=== PATIENT | female | born 1965 | race Caucasian/White ===

== ENCOUNTER 2023-02-18 07:38 | Day surgery (SDC) | payer MEDICAID ==
[~2023-02-18] VITALS: Ht 157.5 cm; Wt 64.8 kg
[2023-02-18 08:00] VITALS: BP 113/59; PULSE 84; RESP 16; TEMP 97.8; O2SAT 98
[2023-02-18] MEDS ORDERED: albumin 25% 100mL bottle x 1 IV PRN (08:00)
[2023-02-18] MEDS ORDERED: LACT10SO7 PO (08:06)
[2023-02-18] MEDS ORDERED: CLIN60LO TOP (08:06)
== END 2023-02-18 09:15 | disposition home or self-care (01) ==
LOC: SSTAY O 07:38
PROVIDERS: ATTEND Radiology Vascular & Interventional Radiology
DX: K70.31 Alcoholic cirrhosis of liver with ascites (principal); Z53.8 Procedure and treatment not carried out for other reasons; F41.1 Generalized anxiety disorder; I10 Essential (primary) hypertension; F32.A Depression, unspecified; M19.90 Unspecified osteoarthritis, unspecified site; F43.10 Post-traumatic stress disorder, unspecified; Z91.013 Allergy to seafood; Z79.899 Other long term (current) drug therapy
CPT/HCPCS: 76705; A6258; A6449

== ENCOUNTER 2025-02-01 22:06 | Inpatient (IN) | payer MEDICAID ==
[~2025-02-01] VITALS: Ht 157.5 cm; Wt 60.0 kg
[~2025-02-01 22:06] MED LIST: CLIN60LO TOP; LACT10SO7 PO
--- NOTE | 2025-02-01 22:17 | Physician Documentation ---
History of Present Illness ~ Stated Complaint: WEAK/DIZZINESS Time Seen by MD: 22:09 HPI Patient presents to the emergency room for evaluation as a transfer from [facility] for acute on chronic kidney failure as well as anemia requiring transfusion. Prior hemoglobin a proximally 1-2 months ago showed hemoglobin of 8 in today was hemoglobin of 7. Patient was sent to the emergency room as outpatient labs showed that patient's hemoglobin was emergently low and that has told to go to the emergency room. Workup at the emergency room showed that she had acute kidney injury as well. CT scan of the abdomen performed that has negative for acute process. Guaiac was negative. She has history of gastric varices and cirrhosis Medication Reconciliation Allergies: Uncoded Allergies: SHELLFISH (Allergy, Unknown, 02/18/23) Scheduled Clindamycin Phosphate (Cleocin T), 1 APPLIC TOP Q12H, (Reported) Lactulose (Lactulose), 30 ML PO DAILY, (Reported) Review of Systems ROS All review of systems negative except as per HPI Physical Exam Physical Exam General: Patient is awake, alert, oriented x4 in no acute distress. Slow to respond Head: Normocephalic and atraumatic. Eyes: Conjunctival normal. EOMI. PERRL. ENT: Mucous membranes moist. Neck: Supple, trachea is midline. Chest: Clear to auscultation bilaterally without rales, rhonchi, or wheezes. There is no accessory muscle use or retractions. Cardiac: RRR without murmurs, gallops, or rubs. Abd: Soft, nondistended, mild diffuse tenderness to palpation Progress Results/Orders Results/Orders Orders - BRANDON BRADLEY MD Urinalysis, Cult If Indicated (02/01/25 22:09) Type And Screen (02/01/25 22:09) Chest,Single View (02/01/25 22:55) Nothing By Mouth (02/02/25 Breakfast) Monitor (02/01/25 22:09) Saline Lock (02/01/25 22:) Electrocardiogram (02/01/25 22:09) Drug Screen, Urine (02/01/25 22:12) Page Hospitalist (02/02/25 02:07) Fill Out Med Reconciliation (02/02/25 02:07) Completed Orders - BRANDON BRADLEY MD Cbc/Diff (02/01/25 22:09) PTT (02/01/25 22:09) Pt Inr (02/01/25 22:09) Chest,Single View (02/01/25 22:55) Electrocardiogram (02/01/25 22:09) Pantoprazole 40mg Iv (Protonix 40mg Iv) (02/01/25 22:10) CMP (02/01/25 22:11) Ammonia (02/01/25 22:11) Procalcitonin (02/01/25 22:18) Ceftriaxone/[id number] 1gm (Rocephin 1 (02/01/25 23:50) Normal Saline 1000ml (0.9% Sodium Chlori (02/01/25 23:50) Medications Received in ER Medications (Trade) Dose Ordered Sig/Justen Route PRN Reason Start Time Stop Time Status Last Admin Dose Admin (Protonix 40mg IV) 80 mg ONCE ONCE IV 02/01/25 22:10 02/01/25 22:34 DC 02/02/25 00:37 80 MG Ceftriaxone Sodium 50 ml @ 100 mls/hr ONCE ONCE IV 02/01/25 23:50 02/02/25 00:19 DC 02/02/25 00:40 100 MLS/HR Sodium Chloride 1,000 ml @ 1,000 mls/hr ONCE ONCE IV 02/01/25 23:50 02/02/25 00:49 DC 02/02/25 00:37 1,000 MLS/HR Vital Signs 02/01/25 02/01/25 02/01/25 02/02/25 22:20 22:49 23:00 00:00 Temp 100.1 98.3 Pulse 96 99 86 Resp 14 9 12 12 B/P (MAP) 98/49 95/49 (64) 84/44 (57) Pulse Ox 99 93 93 O2 Flow Rate 2.0 02/02/25 01:00 Pulse 82 Resp 12 B/P (MAP) 97/42 (60) Pulse Ox 93 O2 Flow Rate 2.0 Laboratory Tests Test 02/01/25 22:46 White Blood Count 19.8 H Red Blood Count 2.62 L Hemoglobin 8.7 L Hematocrit 25.3 L Mean Corpuscular Volume 96.6 Mean Corpuscular Hemoglobin 33.3 H Mean Corpuscular Hemoglobin Concent 34.5 Red Cell Distribution Width 16.9 H Platelet Count 95 L Mean Platelet Volume 8.7 Neutrophils (%) (Auto) 90.0 H Lymphocytes (%) (Auto) 3.1 L Monocytes (%) (Auto) 5.8 Eosinophils (%) (Auto) 0.3 Basophils (%) (Auto) 0.8 Neutrophils # (Auto) 17.8 H Lymphocytes # (Auto) 0.6 L Monocytes # (Auto) 1.1 H Eosinophils # (Auto) 0.1 Basophils # (Auto) 0.1 CBC Comment Prothrombin Time 18.0 H INR International Normalized Ratio 1.9 Activated Partial Thromboplast Time 39 H Coagulation Comments Sodium Level 134 L Potassium Level 5.5 H Chloride Level 106 Carbon Dioxide Level 22.7 L Anion Gap 5 L Blood Urea Nitrogen 26 H Creatinine 3.60 H Estimated GFR/1.73 m2 13 BUN/Creatinine Ratio 7.2 L Glucose Level 114 H Calcium Level 10.5 H Total Bilirubin 8.9 H Aspartate Amino Transf (AST/SGOT) 28 Alanine Aminotransferase (ALT/SGPT) 13 Alkaline Phosphatase 166 H Ammonia 48 H Total Protein 5.3 L Albumin 1.8 L Globulin 3.5 Albumin/Globulin Ratio 0.5 L Procalcitonin 0.97 H Chemistry Comments EKG/XRAY/CT/US/VASC/MRI EKG : Additional Comment EKG interpreted by myself shows time of 04/23/2008, rate 94, sinus rhythm, normal axis, no ST changes Medical Decision Making Additional information obtaine: old records Findings Patient presented to the emergency room for evaluation as a transfer from [facility] for possible GI bleed in the light of acute kidney injury. Patient was found to be hypotensive upon arrival went upon further investigation that has seems patient is also suffering from sepsis. Rocephin administered. Repeat hemoglobin at our facility is reassuring. Guaiac at sending facility was negative which is reassuring. Patient's blood pressure is maintaining and he had not feel she requires ICU admission at this time. Noted hyperammonemia and I will defer to admitting physician for treatment. Given risks versus benefit Protonix ordered. Diff Dx GI Bleed:Consideration: Include: AE fistula, Angiodysplasia, Bleeding diathesis, Blood loss anemia, Carcinoma, Diverticulosis, Diverticulitis, Esophageal varicies, Esophagitis, Gastritis, Gastroenteritis, Inflammatory BD, Luci-Palm syndrome, Meckel's diverticulum, PUD, Other Diff Dx Pain:Considerations: Include: AAA, -Complete, -Incompl ete, -Inevitable, -Missed, -Threatened, Abruptio placentae, Angina/[place], Aortic dissection, Appendicitis, Bowel obstruction, Cholangitis, Cholecystitis, Cholelithasis, Constipation, Diverticular disease, Dysmenorrhea, Ectopic , Esophageal rupture, Esophagitis, Gastritis/PUD, Gastroenteritis, GI hemorrhage, Hernia, Hepatitis, Inflammatory BD, Ischemic bowel, Mass, Ovarian cyst/torsion, Pancreatitis, PID, Porphyria, Trauma, intraabdominal, Urinary obstruction, Urinary tract infection, Urolithiasis, Other Diff Dx N/V/D:Considerations: Include: Appendicitis, Bowel obstruction, Dehydra tion, DKA, Diarrhea - bacterial, Diarrhea - parasitic, Diarrhea - viral, Diverticulitis, Diverticulosis, Drug toxicity, Electrolyte imbalance, Food poisoning, Gastroenteritis, GE reflux, GI bleed, Hepatitis, Hernia, Hypovolemia, Hypotension, Inflammatory BD, Impaction, Malnutrition, Pancreatitis, , PUD, Renal failure, Urolithiasis, Urinary obstruction, UTI, Other Diff Dx Rectal:Considerations: Include: Fissure, Fistula, Foreign body, Impaction, Perirectal abscess, Rectal prolapse, Subcutaneous abscess, Thrombosed hemorrhoid, Ulcer, UTI, Other Departure Admitted to Inpatient Unit: yes, to hospitalist Impression: Primary Impression: Anemia Additional Impressions: Sepsis Acute urinary tract infection Hyperammonemia Acute kidney failure Referrals: NO PRIMARY CARE PROVIDER (PCP) Critical Care Note Total Time (mins): 67 Critical Care Note The note accurately reflects work and decisions made by me.Brandon Bradley MD 02/02/25 02:49 Signature Scribe Signature: No scribe Attestation: The note accurately reflects work and decisions made by me.Brandon Bradley MD 02/02/25 02:49 BRANDON BRADLEY MD Feb 01, 2025 22:17
--- NOTE | 2025-02-01 22:34 | ELECTROCARDIOGRAPH REPORT ---
[facility] Test Date: 2025-02-01 Test Time: 22:09:40 Pat Name: ONEYDA MAX Department: EMERGENCY ROOM Room: [place] [address] Gender: F Crayon Sawyer: JUNIOR : 1965 Requested By: ALEXANDRA MANZANARES Order Number: [id number] Reading MD: Dr. MANDO Coffey Measurements Intervals [place] Rate: 94 P: 83 [place]: 165 QRS: 47 QRSD: 92 T: 63 QT: 347 QTc: 434 Interpretive Statements Sinus rhythm Borderline T abnormalities, anterior leads Baseline wander in lead(s) II,III,aVR,aVL,aVF,V2 Electronically Signed On 02-02-2025 17:34:[address] MANDO Coffey Please click the below link to view image of tracing.
[2025-02-01 23:13] LABS: APTT 39 SECONDS (22-32); INR 1.9 INR
--- NOTE | 2025-02-01 23:19 | RADIOLOGY REPORT ---
CHEST RADIOGRAPH Indication: Hypotension Technique: Single frontal view of the chest was obtained COMPARISON: None FINDINGS: Lines and Tubes: None Lungs: Clear Pleura: No effusion. No pneumothorax. Cardiomediastinal contours: Unremarkable Bones: Unremarkable IMPRESSION: 1. No acute disease.
[2025-02-01 23:20] LABS: CREATININE 3.60 MG/DL (0.40-0.90); TOTAL CARBON DIOXIDE 22.7 MMOL/L (24-32); eCRCL 13 ML/MIN; eGFR 13 ML/MIN
[2025-02-02] VITALS (8 sets, daily range): BP systolic 98–110; BP diastolic 44–64; PULSE 86–95; RESP 12–20; TEMP 97.1–98.4; O2SAT 97–98
[2025-02-02 00:14] LABS: MEAN PLATELET VOLUME 8.7 FL (7.4-10.4); RED CELL DISTRIBUTION WIDTH 16.9 % (11.5-14.5)
[2025-02-02] MEDS: normal saline 1000ml 1,000 ML IV ONE (00:37)
[2025-02-02] MEDS: CefTRIAXone/D5W-Rocephin 1gm 50 ML IV ONE (00:40)
[2025-02-02] MEDS: normal saline 1000ML IV soln IVB ONE ×2 (03:04→21:44)
[2025-02-02] MEDS ORDERED: magnesium Cl slow-release 64mg tablet PO PRN (03:05)
[2025-02-02] MEDS ORDERED: magnesium hydroxide 30ml (MOM) UD suspension PO PRN (03:05)
[2025-02-02] MEDS ORDERED: magnesium sulf-water 4G/100mL 100 ML IV PRN (03:05)
[2025-02-02] MEDS ORDERED: mag hydrox/Alum hydrox/simeth 30ml oral suspension PO PRN (03:05)
[2025-02-02] MEDS ORDERED: magnesium sulf-water 2g/50mL 50 ML IV PRN (03:05)
[2025-02-02] MEDS ORDERED: potassium Cl 40MEQ/1/2NS 520ml 520 ML IV PRN (03:05)
[2025-02-02] MEDS ORDERED: ondansetron/PF 4mg/2ml inj IV PRN (03:05)
[2025-02-02] MEDS ORDERED: PERFLUTREN PROTEIN-A MICROSPHR (Optison) 0.22 MG/ML 3ML VIAL IV ONE (03:05)
[2025-02-02] MEDS ORDERED: potassium Cl 20 mEq SR tablet PO PRN ×2 (03:05)
[2025-02-02] MEDS: normal saline 1000ml 1,000 ML IV SCH (04:37)
--- NOTE | 2025-02-02 04:57 | HISTORY AND PHYSICAL-Residence ---
History & Physical Providers to CC Resident Creating Document: TAIWO TYLER, RES ~ History of Present Illness Primary Medical Doctor: Dr. Fuentes in [place] Reason for Admit\Complaint: severe anemia History of Present Illness A 59-year-old female with a history of alcoholic cirrhosis, chronic kidney disease, duodenal ulcer disease, ascites, varices, jaundice was transferred from [facility] for evaluation and management of severe anemia. She was evaluated by her PCP earlier for progressive weakness, with hemoglobin of 6.8 and was prompted to the ED at prior facility. She denies melena, hematemesis, bright red blood per rectum, hematuria, dysuria, nausea, vomiting, diarrhea, fevers, or chills. She reports chronic lower pelvic cramping. She has a history of heavy alcohol use (vodka and wine daily for 5 years), quit 1 year ago and has had intermittent paracentesis over the past five years. She underwent an EGD, but has never had a colonoscopy. At our facility, she was alert and oriented 4, but intermittently derailed conversations and appeared slightly confused, indicative of mild hepatic encephalopathy. Vital signs on presentation: Temp: 100.1 BP: 98/49 improved to 111/74 after 1 L IV fluid HR: 100 She received 1 L IV fluid bolus, 1 unit PRBC, and pantoprazole 80 mg IV in the ED at the prior facility. Initial labs at our facility showed: WBC 19.8 Hgb 8.7 Platelets 95 Creatinine 3.60 Potassium 5.5 Albumin 1.9 Total bilirubin 8.9 INR 1.85 Labs at the prior facility WBC 11.31 RBC 2.12 Hgb 7.0 MCV 101.4 RDW 16.3 Platelets 111 Na 134 K 4.4 Creatinine 3.5 Ca 11.6 Glucose 126 Albumin 1.9 Total bilirubin 6.8 AST 31, ALT 17, ALP 191 PT 18.4 sec, INR 1.85 Urinalysis: Hazy, leukocyte esterase 2+, bilirubin 1+, nitrite negative, no blood or protein Occult stool: Negative Imaging: CT abdomen and pelvis Cirrhosis with ascites, splenomegaly, portal collaterals Cholelithiasis Constipation/fecal loading Colonic diverticulosis Esophageal varices Allergies: Uncoded Allergies: SHELLFISH (Allergy, Unknown, 02/18/23) Home Medications Home Medications Active Reported Cleocin T (Clindamycin Phosphate) 1 % Lotion 1 Applic TOP Q12H 30 Days apply to affected area(s) Lactulose 20 Gram/30 Ml Solution 30 Ml PO DAILY 30 Days Past Medical History Past Medical History Alcoholic cirrhosis CKD Duodenal ulcer disease Ascites Esophageal varices Portal hypotension Jaundice Cholelithiasis Past Surgical History Surgical History Comment Patient denied any surgeries in the past Past Social History Social History Comment Alcohol: Quit 5 years ago, Drinking for about vodka and wine daily; was unable to quantify Denied smoking or illicit use of drugs Lives at home with boyfriend PCP: Dr. Fuentes Ambulates independently Awaiting Gastroenterology appointment outpatient ROS ROS Reviewed in full. All negative except for pertinent positive HPI. Exam Vitals: Vital Signs Date Time Temp Pulse Resp B/P (MAP) Pulse Ox O2 Delivery O2 Flow Rate FiO2 02/02/25 03:00 80 18 97/50 (66) 99 2.0 02/02/25 00:00 98.3 General: Awake , alert, and oriented x4, mildly confused with daily in conversations HEENT: Atraumatic, normocephalic, EOMI, anicteric sclera ; pink conjunctiva Neck: Trachea midline. Supple, full range of motion, no JVD Cardiac: Regular rhythm, regular rate with systolic murmurs all over the precordium. Respiratory: Equal breath sounds bilaterally, no tachypnea, no wheezing ,rub or rales, Chest wall is symmetric and without deformity. Gastrointestinal: Abdomen symmetric, distended, mild tenderness, normal bowel sounds x4 quadrant, no fluid thrill Musculoskeletal: No pedal edema, no cyanosis Neurological: Mental status exam: alert and consciousness, muffled speech, memory intact, was able to follow commands, hiatal confusion present - Cranial nerve test: Cranial nerves 2-12 intact - Motor system: Nutrition, Tone 3+, Power 5/5, no involuntary movements - Sensory system: Intact - Reflex testing: Biceps, triceps and knee reflexes 2+ - Cerebellar: Normal Skin: Warm and dry Diagnostic Data Last Recorded Lab Results: 02/01/[id number] Diagnostic Data: Laboratory Tests Test 02/01/25 22:46 Prothrombin Time 18.0 SECONDS (9.0-12.0) H INR International Normalized Ratio 1.9 INR Activated Partial Thromboplast Time 39 SECONDS (22-32) H Coagulation Comments Advance Care Planning Advanced Care plannin - 30 Minutes Additional Plan 1. Severe Anemia (Hgb 8.7 post-transfusion, negative stool occult) Varices versus duodenal ulcers Patient has severe anemia with Hgb 6.8 prior to transfusion Macrocytosis (MCV 101) nutritional deficiency versus chronic alcohol use Stool occult blood is negative, could be intermittent GI bleeding Received 1 unit PRBC transfusion at prior facility Plan: Continue to monitor hemoglobin and transfuse PRBC if Hgb <7 H&H Q 6 H Ordered iron, B12, folate, reticulocyte count Please consult GI for EGD Continue IV PPI Protonix 40 mg b.i.d. Patient received loading dose of Protonix in the ED 2. Decompensated Cirrhosis / Portal Hypertension Severe Hyperbilirubinemia Advanced cirrhosis with ascites, varices, jaundice, low albumin, elevated INR MELD-Na: 35 - very high 90-day mortality Child-Medrano: 12 - Class C, severe disease Plan: Ordered direct bilirubin levels, please follow up Patient will benefit from transplant evaluation Monitor liver function tests, bilirubin, INR, albumin daily Avoid nephrotoxic and hepatotoxic medications Sodium restriction (2 g/day) Propranolol prophylaxis deferred now due to low blood pressure. Reassess once hemodynamically stable 3. Ascites Risk of SBP- spontaneous bacterial peritonitis Moderate ascites noted on imaging Patient currently has a white count of 19.8, fever, hypotension- sepsis Plan: Diagnostic and therapeutic paracentesis for cell count, albumin, protein and cultures ordered Empiric IV ceftriaxone 1 g IV daily ordered Diuretics (furosemide, spironolactone) deferred due to hypotension and XIOMARA Monitor weight, strict I/O, and renal function daily Blood cultures ordered 4. Acute Kidney Injury / CKD (Creatinine 3.60) Hepatorenal syndrome (HRS) is not diagnosed at this time Currently not hepatorenal syndrome as renal function has not been challenged with fluids or albumin yet Could be from hypotension or sepsis Plan: Patient received 1.5 L IV bolus in the ED, continuing fluid resuscitation at 100 cc/hour Please DC fluids tomorrow in a.m. in view of ascites Monitor electrolytes and renal function closely Consult nephrology if renal function worsens Urine lytes ordered Renal ultrasound ordered Avoid nephrotoxic medications If hepatorenal syndrome his diagnosed consider tele present, octreotide/midodrine 5. Coagulopathy (INR 1.85, Platelets 95) Patient does not require any correction as there is no active bleeding now Vitamin K IV if INR is still above 1.5 Goal of INR 1.5 for EGD Monitor INR and platelets daily 7. Mild Hepatic Encephalopathy Intermittent confusion likely triggered by infection, constipation, or metabolic derangements Plan: Initiated lactulose, 23 soft stools/day Consider rifaximin if encephalopathy persists Monitor mental status frequently 8. Hyperkalemia (K 5.5) Mild hyperkalemia likely secondary to XIOMARA Plan: Repeat potassium ordered No ECG changes present currently Avoiding spironolactone in view of hyperkalemia Ordered 1 time dose of Lokelma If any new EKG changes appear, please order calcium gluconate for cardiac stabilization 9. Constipation Chronic constipation worsened by ascites and immobility Can exacerbate hepatic encephalopathy Continue lactulose Encouraged ambulation 10. Alcohol use disorder Severe malnutrition Malnutrition evident (albumin 1.9 g/dL) History of alcohol use, currently abstinent Plan: Nutrition consult for high-protein and low-sodium diet Supplement thiamine, folate, multivitamins creative services specialist and substance abuse navigator consulted Code Status: I spent a total of 17 minutes on reviewing various resuscitative measures with the patient at the time of admission. The patient has decided on a full code status. DVT Prophylaxis: SCDs Disposition: GI consult in a.. Taiwo Tyler MD Internal Medicine Resident, PGY-2 Plan reviewed with bedside team. Patient seen through remote audiovisual assessment through HIPAA compliant setup. All labs, flowsheets, and images reviewed Cumulative nonprocedural care time spent in directed patient care = 60 min Date of Service: Feb 02, 2025 Billing Provider: BRENT JARAMILLO MD, GAURAV, RES Feb 02, 2025 04:57 BRENT JARAMILLO MD Feb 02, 2025 06:59
[2025-02-02] MEDS: albumin (human) 25% 100 ML IV solution IV ONE (05:53)
[2025-02-02] MEDS: lactulose 20gm/30ml cup PO SCH ×3 (06:12→19:11)
[2025-02-02 06:13] LABS: LEUKOCYTE ESTERASE ,URINE SMALL (Neg); OCCULT BLOOD,URINE NEGATIVE (Neg)
[2025-02-02 06:18] LABS: OSMOLALITY UA 322 MOSM/K (50-1400)
[2025-02-02] MEDS ORDERED: SIME80TA16 (06:34)
[2025-02-02] MEDS ORDERED: OMEP40CA21 PO (06:34)
[2025-02-02] MEDS ORDERED: SUCR1TAB PO (06:34)
[2025-02-02] MEDS ORDERED: SPIR50TA5 PO (06:34)
[2025-02-02 06:44] LABS: UA COLLECTION TYPE CLN CATCH MIDSTREAM
[2025-02-02 06:45] LABS: NITRITES, URINE NEGATIVE (Neg)
[2025-02-02 06:48] LABS: CREATININE,URINE RANDOM 150.0 MG/DL; HYALINE CASTS 0-3 /LPF (NEGATIVE); SQUAMOUS EPITHELIAL CELL,UR MODERATE /LPF (FEW); URINE AMPHETAMINE SCREEN NEGATIVE (Neg); URINE BARBITUATE SCREEN NEGATIVE (Neg); URINE BENZODIAZEPINES SCREEN NEGATIVE (Neg); URINE CANNABINOID SCREEN NEGATIVE (Neg); URINE COCAINE SCREEN NEGATIVE (Neg); URINE METHADONE SCREEN NEGATIVE (Neg); URINE OPIATE SCREEN POSITIVE (Neg); URINE PHENCYCLIDINE SCREEN NEGATIVE (Neg)
[2025-02-02 07:44] LABS: MEAN PLATELET VOLUME 8.1 FL (7.4-10.4); RED CELL DISTRIBUTION WIDTH 17.0 % (11.5-14.5)
[2025-02-02 07:51] LABS: OSMOLALITY 296 MOSM/K (280-300)
[2025-02-02 07:57] LABS: % IRON SATURATION 100 % (11-46)
[2025-02-02] MEDS: K and/or MAG REPLACEMENT MC SCH (08:00)
[2025-02-02 08:22] LABS: ETHANOL < 10 MG/DL (<10)
[2025-02-02] MEDS: thiamine 100mg/ml 2ml inj. IV SCH (09:21)
[2025-02-02] MEDS: docusate sod 100mg capsule PO SCH (09:21)
[2025-02-02] MEDS: folic acid 1mg/0.2ml inj IV SCH (09:21)
[2025-02-02] MEDS: multivitamins, therapeutics tablet PO SCH (09:21)
[2025-02-02] MEDS: SODIUM ZIRCONIUM CYCLOSILICATE 10 GM POWD.PACK PO ONE (09:21)
--- NOTE | 2025-02-02 11:03 | RADIOLOGY REPORT ---
INDICATION: CKD TECHNIQUE: Multiple real-time sonographic images of the kidneys and bladder were obtained. COMPARISON: None FINDINGS: The right kidney measures 11 cm in length, which is normal in size. There is normal echogenicity of the right kidney. No hydronephrosis. The left kidney measures 11 cm in length, which is normal in size. There is normal echogenicity of the left kidney. No hydronephrosis. IMPRESSION: 1. Normal sonographic appearance of the kidneys. No hydronephrosis. 2. Moderate ascites
--- NOTE | 2025-02-02 11:05 | RADIOLOGY REPORT ---
PROCEDURE: ULTRASOUND GUIDED PARACENTESIS HISTORY: 59 Female requiring paracentesis. TECHNIQUE: The risks and benefits of the procedure including but not limited to bleeding, infection and injury to abdominal organs were explained to the patient and written informed consent was obtained. Trace ascites IMPRESSION: Trace ascites ; too small for paracentesis.
[2025-02-02 11:42] LABS: MEAN PLATELET VOLUME 8.2 FL (7.4-10.4); RED CELL DISTRIBUTION WIDTH 16.9 % (11.5-14.5)
[2025-02-02 12:12] LABS: CREATININE 3.44 MG/DL (0.40-0.90); TOTAL CARBON DIOXIDE 20.3 MMOL/L (24-32); eCRCL 14 ML/MIN; eGFR 14 ML/MIN
[2025-02-02 15:57] LABS: MEAN PLATELET VOLUME 7.9 FL (7.4-10.4); RED CELL DISTRIBUTION WIDTH 17.0 % (11.5-14.5)
--- NOTE | 2025-02-02 18:18 | CARDIOLOGY REPORT ---
APPROVED REPORT EXAM: Comprehensive 2D, Doppler, and color-flow Echocardiogram. Patient Location: 3[address] Blood Pressure: 103/44 mmHg Heart Rate: 88 bpm Rhythm: SINUS Indications ABNORMAL EKG ANEMIA SYSTOLIC MURMUR Abattoir Manager: none Previous echo: none 2D Dimensions RVDd 4.1 cm LA Diam 5.4 cm IVSd 1.2 (0.7-1.1cm) LVDd 4.5 cm PWd 1.1 (0.7-1.1cm) IVSs 1.4 (0.8-1.2cm) LVDs 3.2 (2.5-4.0cm) PWs 1.7 (0.8-1.2cm) LVOT Diameter 1.83 (1.8-2.4cm) Ao Asc Diam. 2.92 cm IVC 16.75 mm FS (%) 27.7 % SV 48.9 ml CO 6.8 L/min M-Mode Dimensions Left Atrium(MM) 3.54 (2.5-4.0cm) IVSd 0.93 (0.7-1.1cm) LVDd 4.81 (4.0-5.6cm) Aortic Root 3.12 (2.2-3.7cm) PWd 0.93 (0.7-1.1cm) Aortic Cusp Exc 1.72 (1.5-2.0cm) IVSs 1.65 cm LVDs 2.85 (2.0-3.8cm) FS (%) 41 % PWs 1.44 cm ESV(Teich) 30.8 ml LVEF(%) 71 (>50%) Biplane 2D LA Volumes LA ESV Index 31.56 mL/m2 Aortic Valve AoV Peak Steve. 251.1 cm/s AoV VTI 49.3 cm AO Peak GR. 25.2 mmHg AO Mean GR. 12 mmHg LVOT VTI 38.26 cm LVOT Peak Steve. 187.0 cm/s GRACIA(VTI)/BSA 2.00 cm2/m2 GRACIA (VTI) 2.00 cm2 AV DI 0.78 % Mitral Valve MV E Velocity 136.1 cm/s MV Peak Gr. 8 mmHg MV DECEL TIME 160 ms MV A Velocity 106.5 cm/s MV PHT 64 ms E/A Ratio 1.3 MVA (PHT) 3.44 cm2 MV VMax 138.8 cm/s TDI Medial E' P. V 19.19 cm/s E/Medial E' 7.1 Tricuspid Valve TR P. Velocity 261 cm/s RAP ESTIMATE 15 mmHg TR Peak Gr. 27 mmHg RVSP 42 mmHg Pulmonary Vein S1 Velocity 73.5 cm/s D2 Velocity 58.4 cm/s PVa Velocity 30.9 cm/s PVa Duration 68 msec LEFT VENTRICLE Normal LV size and function. Mild concentric hypertrophy. Overall LVEF is 70-75%. RIGHT VENTRICLE RV is moderately dilated with normal systolic function. RVSP is estimated at 42 mmHg. ATRIA Left atrium is mildly dilated. AORTIC VALVE Trileaflet AV appears mildly sclerotic without stenosis or insufficiency. MITRAL VALVE Mild MV annular calcification without stenosis. Trace regurgitation. TRICUSPID VALVE TV appears structurally normal with trace regurgitation. Hyperdynamic flow through the IVC into the RA, PULMONIC VALVE Normal PV without stenosis, physiologic insufficiency. GREAT VESSELS Aortic root is normal in size. Ascending aorta is normal in size. Hyperdynamic venous inflow, likely due to portal hypertension. PERICARDIUM Trace anterior pericardial effusion and epicardial fat pad without hemodynamic compromise. Other Information Study Quality: Adequate Conclusion Overall LVEF is 70-75%. Normal LV size and function. Mild concentric hypertrophy. RV is moderately dilated with normal systolic function. RVSP is estimated at 42 mmHg. Trileaflet AV appears mildly sclerotic without stenosis or insufficiency. Mild MV annular calcification without stenosis. Trace regurgitation. TV appears structurally normal with trace regurgitation. Hyperdynamic flow through the IVC into the RA, Normal PV without stenosis, physiologic insufficiency. Trace anterior pericardial effusion and epicardial fat pad without hemodynamic compromise.
--- NOTE | 2025-02-02 18:29 | PROGRESS NOTE ---
Daily Progress Note Providers to CC ~ Antibiotic Timeout Antibiotic Ordered?: Yes Subjective Patient was seen in presence of nursing staff she is able to get up by herself and walk. No significant ascites present paracentesis was not done. Patient feels that she gets off and on swelling over her ankles.she was transferred from [facility] for evaluation and management of severe anemia.As per residents note Stool occult blood is negative. Guaiac at sending facility was negative . Dr Wills aware regarding this patient's admission and willing to evaluate the patient possible EGD Objective Vital Signs Date Time Temp Pulse Resp B/P (MAP) Pulse Ox O2 Delivery O2 Flow Rate FiO2 02/02/25 15:00 97.7 93 13 103/44 (63) 98 Room Air 02/02/25 03:00 2.0 Result Diagram: 02/02/25 1547 02/02/25 1128 General-patient not in any acute distress, alert awake oriented, chronically ill-appearing HEENT-atraumatic normocephalic, neck supple without elevated JVD, . No lymphadenopathy bilaterally. Eyes-no icterus or pallor seen in eyes Chest-clear to auscultation bilaterally, breathing nonlabored no tachypnea, no wheezing, no crepitation, no crackles. Heart-S1-S2 normal, regular heart rate no murmur Abdomen bowel sounds positive on auscultation, soft nondistended nontender no guarding, no rigidity Skin no active skin rash Neurology-grossly intact, nonfocal alert awake oriented Extremity- no pedal edema able to move all 4 extremities, ambulate Psychiatry - patient is not confused or agitated cooperated during physical examination Coagulation Studies Laboratory Tests Test 02/01/25 22:46 Prothrombin Time 18.0 SECONDS (9.0-12.0) H INR International Normalized Ratio 1.9 INR Activated Partial Thromboplast Time 39 SECONDS (22-32) H Coagulation Comments Problem\Assessment\Plan 1. Severe Anemia (Hgb 8.7 post-transfusion, negative stool occult) Varices versus duodenal ulcers Patient has severe anemia with Hgb 6.8 prior to transfusion Macrocytosis (MCV 101) nutritional deficiency versus chronic alcohol use Stool occult blood is negative, Received 1 unit PRBC transfusion at prior facility Plan: Continue to monitor hemoglobin and transfuse PRBC if Hgb <7 H&H Q 6 H will follow iron, B12, folate, reticulocyte count Dr Wills aware regarding this patient's admission and willing to evaluate the patient possible EGD Continue IV PPI Protonix 40 mg b.i.d. Patient received loading dose of Protonix in the ED 2. Decompensated Cirrhosis / Portal Hypertension Severe Hyperbilirubinemia Advanced cirrhosis with ascites, varices, jaundice, low albumin, elevated INR MELD-Na: 35 - very high 90-day mortality Child-Medrano: 12 - Class C, severe disease Plan: Ordered direct bilirubin levels, please follow up Patient will benefit from transplant evaluation will Monitor liver function tests, bilirubin, INR, albumin daily Avoid nephrotoxic and hepatotoxic medications Sodium restriction (2 g/day) Propranolol prophylaxis deferred now due to borderline blood pressure. 3. Ascites Risk of SBP- spontaneous bacterial peritonitis Moderate ascites noted on imaging but Trace ascites ; too small for paracentesis as per ip technology transactions attorney team. Patient currently has a white count of 19.8, fever, hypotension- sepsis Plan: Diagnostic and therapeutic paracentesis for cell count, albumin, protein and cultures ordered Empiric IV ceftriaxone 1 g IV daily ordered Diuretics (furosemide, spironolactone) deferred due to hypotension and XIOMARA Monitor weight, strict I/O, and renal function daily Blood cultures so far negative 4. Acute Kidney Injury / CKD (Creatinine 3.60) Hepatorenal syndrome (HRS) is not diagnosed at this time Currently not hepatorenal syndrome as renal function has not been challenged with fluids or albumin yet Could be from hypotension or sepsis Plan: Patient received 1.5 L IV bolus in the ED, continuing fluid resuscitation at 50 cc/hour will Monitor electrolytes and renal function closely Consult nephrology specialist in AM Urine lytes ordered Renal ultrasound ordered Avoid nephrotoxic medications 5. Coagulopathy (INR 1.85, Platelets 95) Patient does not require any correction as there is no active bleeding now Vitamin K IV if INR is still above 1.5 Goal of INR 1.5 for EGD will Monitor INR and platelets daily 7. Mild Hepatic Encephalopathy- resolved Intermittent confusion likely triggered by infection or metabolic derangements Plan: Initiated lactulose, 23 soft stools/day will Consider rifaximin if encephalopathy persists 8. Hyperkalemia (K 5.5) Mild hyperkalemia likely secondary to XIOMARA Plan: Repeat potassium ordered No ECG changes present currently Avoiding spironolactone in view of hyperkalemia Ordered 1 time dose of Lokelma 9. Constipation Chronic constipation worsened by ascites and immobility Can exacerbate hepatic encephalopathy will Continue lactulose Encouraged ambulation 10. Alcohol use disorder Severe malnutrition Malnutrition evident (albumin 1.9 g/dL) History of alcohol use, currently abstinent Plan: Nutrition consult for high-protein and low-sodium diet Supplement thiamine, folate, multivitamins special services supervisor and substance abuse navigator consulted Patient's current condition is guarded we will continue to follow patient in AM Date of Service: Feb 02, 2025 Billing Provider: JHONATAN MATTHEW MD Common Visit Codes: [id number] INP/OBS CARE(HIGH) JHONATAN MATTHEW MD Feb 02, 2025 18:29
[2025-02-02 23:54] LABS: RED CELL DISTRIBUTION WIDTH 16.9 % (11.5-14.5)
[2025-02-02 23:55] LABS: MEAN PLATELET VOLUME 8.6 FL (7.4-10.4)
[2025-02-03] VITALS (17 sets, daily range): BP systolic 92–112; BP diastolic 20–63; PULSE 72–94; RESP 11–28; TEMP 97–97.9; O2SAT 93–99
[2025-02-03] MEDS: CefTRIAXone/D5W-Rocephin 1gm 50 ML IV SCH (00:12)
[2025-02-03 02:13] LABS: OCCULT BLOOD STOOL NEGATIVE (Neg)
[2025-02-03 04:14] LABS: MEAN PLATELET VOLUME 8.7 FL (7.4-10.4); RED CELL DISTRIBUTION WIDTH 17.3 % (11.5-14.5)
[2025-02-03 07:09] LABS: MEAN PLATELET VOLUME 9.0 FL (7.4-10.4); RED CELL DISTRIBUTION WIDTH 16.6 % (11.5-14.5)
[2025-02-03 07:30] LABS: CREATININE 3.50 MG/DL (0.40-0.90); LDL CHOLESTEROL 27 MG/DL (50-100); TOTAL CARBON DIOXIDE 18.0 MMOL/L (24-32); eCRCL 14 ML/MIN; eGFR 13 ML/MIN
[2025-02-03 07:34] LABS: CHOL/HDL RATIO 1.9 (0.00-4.99)
[2025-02-03] MEDS ORDERED: LIDOcaine 2% Viscous 15ml cup ONE (08:00)
[2025-02-03] MEDS ORDERED: simethicone 40mg/0.6ml oral drops 15ml ONE (08:00)
[2025-02-03] MEDS ORDERED: fentaNYL/PF 50MCG/1 ML 2ML syringe ONE (09:16)
[2025-02-03] MEDS ORDERED: MIDAZolam 1 MG/ML 5ML VIAL ONE (09:16)
[2025-02-03] MEDS: sodium bicarbonate (8.4%) inj. 50 MEQ in dextrose 5%-water 1,000 ML IV SCH (10:57)
[2025-02-03 11:34] LABS: MEAN PLATELET VOLUME 8.6 FL (7.4-10.4); RED CELL DISTRIBUTION WIDTH 16.9 % (11.5-14.5)
[2025-02-03] MEDS: albumin (Human) 5% 250ml 250 ML IV ONE (12:33)
--- NOTE | 2025-02-03 17:53 | CONSULTATION REPORT ---
Consult Providers to CC ~ History of Present Illness Reason for Admit\Complaint: Confusion History of Present Illness This is a 59-year-old woman with a complex medical history including alcoholic cirrhosis, chronic kidney disease (CKD), duodenal ulcer, ascites, esophageal varices, jaundice, severe malnutrition, and chronic alcohol use (now abstinent for one year), who was transferred for evaluation and management of severe anemia and acute kidney injury (XIOMARA) on CKD. She presents with progressive weakness, chronic pelvic cramping, and chronic constipation, but denies overt GI bleeding, hematuria, or infectious symptoms. Her hospital course is notable for ongoing coagulopathy, mild hepatic encephalopathy, hyperkalemia, and persistent anemia. She has received IV fluids, a recent therapeutic paracentesis (with minimal ascites), and is on a regimen including lactulose, ceftriaxone, and supportive vitamins. Her renal function remains stable but impaired, with no evidence of hepatorenal syndrome, and her clinical picture is complicated by cirrhosis-related coagulopathy, severe malnutrition, and ongoing risk for GI bleeding. Allergies: Uncoded Allergies: SHELLFISH (Allergy, Unknown, 02/18/23) Home Medications Home Medications Active Reported Spironolactone 50 Mg Tablet 1 Tab PO BID Sucralfate 1 Gram Tablet 1 Tab PO QID Simethicone 80 Mg Tab.chew Prilosec (Omeprazole) 40 Mg Capsule 1 Cap PO BID Lactulose 20 Gram/30 Ml Solution 30 Ml PO DAILY 30 Days Past Medical History Past Medical History Reviewed Past Surgical History Surgical History Comment Reviewed Past Social History Social History Comment Reviewed Health Maintenance Health Maintenance Reviewed ROS ROS All other systems negative by patient reports Exam Vitals: Vital Signs Date Time Temp Pulse Resp B/P (MAP) Pulse Ox O2 Delivery O2 Flow Rate FiO2 02/03/25 15:00 97.7 79 15 111/54 (73) 94 Room Air 02/03/25 10:30 2.0 Aleert, some confusion RRR w/o murmur CTAB +BS, NT No edema Diagnostic Data Last Recorded Lab Results: 02/03/25 1120 02/03/25 0622 Diagnostic Data: I & O 02/03/25 07:00 Intake Total 290 ml Balance 290 ml Intake Oral 290 ml # Voids 3 # Bowel Movements 3 Laboratory Tests Test 02/01/25 22:46 Prothrombin Time 18.0 SECONDS (9.0-12.0) H INR International Normalized Ratio 1.9 INR Activated Partial Thromboplast Time 39 SECONDS (22-32) H Coagulation Comments Problems: (1) Cirrhosis Assessment & Plan: Cirrhosis with Portal Hypertension, Ascites, and Coagulopathy Sodium restriction: <2 g/day. Fluid restriction: Only if serum sodium <125 mmol/L. No further paracentesis at this time (trace ascites). Monitor INR and platelets: Daily. Vitamin K: 10 mg IV daily x3 days if INR >1.5 and not on warfarin. Hold anticoagulants/antiplatelets unless clear indication. Continue PPI: Pantoprazole 40 mg IV or PO daily. Monitor for SBP: Continue ceftriaxone 1 g IV daily for prophylaxis (if indicated by local protocol or high risk). (2) Encephalopathy Assessment & Plan: Hepatic Encephalopathy (mild, intermittent) Continue lactulose: 2030 g (3045 mL) PO/NG every 12 hours until 23 soft stools/day, then titrate to maintain. Rifaximin: Consider adding 550 mg PO BID if recurrent or persistent encephalopathy. Monitor ammonia levels and mental status daily. Avoid sedatives and opioids. (3) Hyperkalemia Assessment & Plan: Hyperkalemia (improved, now 4.3) Monitor potassium daily. Sodium polystyrene sulfonate (Kayexalate): Only if potassium rises >5.5 mmol/L and not responding to other measures, 1530 g PO/NG once. Avoid potassium-sparing diuretics and ACEi/ARBs. Dietary potassium restriction: <2 g/day. (4) Coagulopathy Assessment & Plan: Coagulopathy (INR 1.5, platelets 7095) Monitor INR and platelets daily. Vitamin K: 10 mg IV daily x3 days if INR >1.5. Platelet transfusion: If platelets <50,000 and active bleeding or prior to invasive procedures. Fresh frozen plasma (FFP): Only if active bleeding or prior to procedures with INR >1.5. (5) Malnutrition Assessment & Plan: Severe Malnutrition Continue multivitamin, thiamine 100 mg IV daily, folic acid 1 mg PO daily. Dietitian consult: For nutritional assessment and enteral feeding plan. Monitor for refeeding syndrome: Check phosphorus, magnesium, potassium daily. Supplement magnesium: Magnesium sulfate 12 g IV daily as needed to maintain Mg >2.0 mg/dL. (6) Alcohol use disorder in remission Assessment & Plan: Alcohol Use Disorder (in remission) Continue to support abstinence. Monitor for withdrawal symptoms. Social work and addiction counseling referral. (7) Duodenal ulcer Assessment & Plan: Duodenal Ulcer, Esophageal Varices (history) Continue pantoprazole 40 mg IV or PO daily. Monitor for GI bleeding: Serial H/H, stool guaiac. We should plan for colonoscopy when stable. (8) Constipation Assessment & Plan: Chronic Constipation Continue magnesium hydroxide 400 mg PO BID as tolerated. Continue lactulose as above. Consider senna 8.6 mg PO daily if needed. Encourage mobility and hydration as able. (9) Anemia Status: Acute Assessment & Plan: Severe Anemia (likely multifactorial: chronic disease, GI blood loss, nutritional deficiency) Transfuse PRBCs: Target hemoglobin >7 g/dL (transfuse 1 unit PRBCs for Hgb <7 or symptomatic anemia, reassess after each unit). Iron supplementation: IV iron sucrose 100 mg IV x3 doses if iron deficiency confirmed and no active infection. Folic acid: Continue 1 mg PO daily. Vitamin B12: Supplement if deficient, e.g., cyanocobalamin 1,000 mcg IM monthly. Monitor for GI bleeding: Serial H/H, consider fecal occult blood testing. Plan for colonoscopy when stable to evaluate for lower GI source. (10) Acute kidney failure Status: Acute Assessment & Plan: Acute Kidney Injury (XIOMARA) on Chronic Kidney Disease (CKD) Continue IV fluids: Maintain at 100 mL/hr of 0.9% NaCl, reassess daily for volume status (hold or reduce if signs of overload). Monitor urine output: Place Ding catheter if unable to monitor accurately. Avoid nephrotoxins: Hold NSAIDs, minimize contrast, review all medications for renal dosing. Electrolyte monitoring: Check BMP daily, especially potassium and bicarbonate. Adjust medications for renal function: e.g., ceftriaxone is safe, but monitor for accumulation. Administer 1 g/kg IV albumin once daily for 2 days (max 100 g/day) Hold diuretics unless evidence of volume overload. DARRIAN BENSON III DO Feb 03, 2025 17:53
[2025-02-03 18:53] LABS: MEAN PLATELET VOLUME 8.9 FL (7.4-10.4); RED CELL DISTRIBUTION WIDTH 17.5 % (11.5-14.5)
--- NOTE | 2025-02-03 19:53 | PROGRESS NOTE ---
Daily Progress Note Providers to CC ~ Antibiotic Timeout Antibiotic Ordered?: Yes Subjective patient was seen after she came back from colonoscopy. She was quite lethargic and vaguely responded to verbal commands partially cooperated during physical exam. Patient's boyfriend came in evening and he mentioned that she is dealing with this condition since couple of years. Everything started with gallbladder problem and she went to [place] but looks like abdominal surgery was not done for some reasons. All labs, diagnostic workup and discharge plan discussed with patients boyfriend in detail today. All questions and queries answered to the best of my professional medical knowledge. EGD showed grade 1 esophageal varices, portal hypertensive gastropathy which was biopsied, normal duodenal bulb and 2nd portion of duodenum. It was recommended to resume regular diet, continue present medication. Emergency contact information provided by GI specialist. After discussing current updated medical issues his boyfriend mentioned that everything you said is right but things that I have to add and then he left back inside the room. He mentioned patient is a fighter in he wants to fight for patient's life . Objective Vital Signs Date Time Temp Pulse Resp B/P (MAP) Pulse Ox O2 Delivery O2 Flow Rate FiO2 02/03/25 15:00 97.7 79 15 111/54 (73) 94 Room Air 02/03/25 10:30 2.0 Result Diagram: 02/03/25 1820 02/03/25 0622 General-patient not in any acute distress, lethargic chronically ill-appearing HEENT-atraumatic normocephalic, neck supple without elevated JVD, . No lymphadenopathy bilaterally. Eyes-no icterus or pallor seen in eyes Chest-clear to auscultation bilaterally, breathing nonlabored no tachypnea, no wheezing, no crepitation, no crackles. Heart-S1-S2 normal, regular heart rate no murmur Abdomen bowel sounds positive on auscultation, soft nondistended nontender no guarding, no rigidity Skin no active skin rash Neurology-grossly intact, nonfocal , lethargic partially cooperated during physical exam Extremity- no pedal edema able to move all 4 extremities, Psychiatry - patient is not agitated , partially cooperated during physical examination Coagulation Studies Laboratory Tests Test 02/01/25 22:46 Prothrombin Time 18.0 SECONDS (9.0-12.0) H INR International Normalized Ratio 1.9 INR Activated Partial Thromboplast Time 39 SECONDS (22-32) H Coagulation Comments Problem\Assessment\Plan 1. Severe Anemia (Hgb 8.7 post-transfusion, negative stool occult) Varices versus duodenal ulcers Patient has severe anemia with Hgb 6.8 prior to transfusion Macrocytosis (MCV 101) nutritional deficiency versus chronic alcohol use Stool occult blood is negative, Received 1 unit PRBC transfusion at prior facility Plan: Continue to monitor hemoglobin and transfuse PRBC if Hgb <7 H&H Q 6 H will follow iron, B12, folate, reticulocyte count Dr Wills aware regarding this patient's admission and willing to evaluate the patient possible EGD Continue IV PPI Protonix 40 mg b.i.d. Patient received loading dose of Protonix in the ED One more unit of packed RBC ordered 2. Decompensated Cirrhosis / Portal Hypertension Severe Hyperbilirubinemia Advanced cirrhosis with ascites, varices, jaundice, low albumin, elevated INR MELD-Na: 35 - very high 90-day mortality Child-Medrano: 12 - Class C, severe disease Plan: Ordered direct bilirubin levels, please follow up Patient will benefit from transplant evaluation will Monitor liver function tests, bilirubin, INR, albumin daily Avoid nephrotoxic and hepatotoxic medications Sodium restriction (2 g/day) Propranolol prophylaxis deferred now due to borderline blood pressure. 3. Ascites Risk of SBP- spontaneous bacterial peritonitis Moderate ascites noted on imaging but Trace ascites ; too small for paracentesis as per upper inspector team. Patient currently has a white count of 19.8, fever, hypotension- sepsis Plan: Diagnostic and therapeutic paracentesis for cell count, albumin, protein and cultures ordered Empiric IV ceftriaxone 1 g IV daily ordered Diuretics (furosemide, spironolactone) deferred due to hypotension and XIOMARA Monitor weight, strict I/O, and renal function daily Blood cultures so far negative 4. Acute Kidney Injury / CKD (Creatinine 3.60) Hepatorenal syndrome (HRS) is not diagnosed at this time Currently not hepatorenal syndrome as renal function has not been challenged with fluids or albumin yet Could be from hypotension or sepsis Plan: Patient received 1.5 L IV bolus in the ED, continuing fluid resuscitation at 50 cc/hour normal saline and soda bicarb will Monitor electrolytes and renal function closely , Urine lytes ordered Renal ultrasound done which showed moderate bursitis, normal sonographic appearance of the kidneys no hydronephrosis Avoid nephrotoxic medications Dr. Nixon consulted for this patient's case and he recommended to start albumin which is ordered. Further management for acute kidney injury/acute on chronic CKD per Nephrology specialist 5. Coagulopathy (INR 1.85, Platelets 95) Patient does not require any correction as there is no active bleeding now will Monitor INR and platelets daily 7. Mild Hepatic Encephalopathy- resolved Intermittent confusion likely triggered by infection or metabolic derangements Plan: Initiated lactulose, 23 soft stools/day will Consider rifaximin if encephalopathy persists 8. Hyperkalemia (K 5.5)-resolved Mild hyperkalemia likely secondary to XIOMARA Plan: Repeat potassium ordered No ECG changes present currently Avoiding spironolactone in view of hyperkalemia Ordered 1 time dose of Lokelma 9. Constipation Chronic constipation worsened by ascites and immobility Can exacerbate hepatic encephalopathy will Continue lactulose Encouraged ambulation 10. Alcohol use disorder Severe malnutrition Malnutrition evident (albumin 1.9 g/dL) History of alcohol use, currently abstinent Plan: Nutrition consult for high-protein and low-sodium diet Supplement thiamine, folate, multivitamins administrative services manager and substance abuse navigator consulted 11. Urine culture showing Gram-negative rods currently on ceftriaxone. patient was seen after she came back from colonoscopy. She was quite lethargic and vaguely responded to verbal commands partially cooperated during physical exam. Patient's boyfriend came in evening and he mentioned that she is dealing with this condition since couple of years. Everything started with gallbladder problem and she went to [place] but looks like abdominal surgery was not done for some reasons. All labs, diagnostic workup and discharge plan discussed with patients boyfriend in detail today. All questions and queries answered to the best of my professional medical knowledge. EGD showed grade 1 esophageal varices, portal hypertensive gastropathy which was biopsied, normal duodenal bulb and 2nd portion of duodenum. It was recommended to resume regular diet, continue present medication. Emergency contact information provided by GI specialist. After discussing current updated medical issues his boyfriend mentioned that everything you said is right but things that I have to add and then he left back inside the room. He mentioned patient is a fighter and he wants to fight for patient's life . Patient's current condition is guarded we will continue to follow patient in AM. Date of Service: Feb 03, 2025 Billing Provider: JHONATAN MATTHEW MD Common Visit Codes: [id number] INP/OBS CARE(HIGH) JHONATAN MATTHEW MD Feb 03, 2025 19:53
[2025-02-03 21:03] LABS: MEAN PLATELET VOLUME 8.8 FL (7.4-10.4); RED CELL DISTRIBUTION WIDTH 17.1 % (11.5-14.5)
[2025-02-03 21:13] LABS: INR 1.9 INR
[2025-02-04] VITALS (9 sets, daily range): BP systolic 94–139; BP diastolic 46–65; PULSE 68–87; RESP 12–28; TEMP 96.9–98.2; O2SAT 90–100
[2025-02-04 07:13] LABS: MEAN PLATELET VOLUME 8.3 FL (7.4-10.4); RED CELL DISTRIBUTION WIDTH 19.0 % (11.5-14.5)
[2025-02-04 08:07] LABS: CREATININE 3.21 MG/DL (0.40-0.90); TOTAL CARBON DIOXIDE 19.2 MMOL/L (24-32); eCRCL 15 ML/MIN; eGFR 15 ML/MIN
[2025-02-04] MEDS: pantoprazole 40mg Tablet.DR PO SCH (09:39)
[2025-02-04] MEDS: albumin (Human) 5% 250ml 250 ML IV ONE (14:02)
--- NOTE | 2025-02-04 19:47 | PROGRESS NOTE ---
Daily Progress Note Providers to CC ~ Antibiotic Timeout Antibiotic Ordered?: Yes Subjective Patient was in presence of case management assistant Janine patient's boyfriend and nursing staff today. I tried to explain patient's current updated medical condition to both patient and her boyfriend. Patient is mildly confused but cooperated during physical exam. I am not sure how much boyfriend is getting with the conversation but he feels that he wants to take her to [place] for further management.. Nephrology specialist Dr. Nixon following the patient and recommended to order another albumin dose for today and he is okay to follow patient for nephrology issues in outpatient setting. Objective Vital Signs Date Time Temp Pulse Resp B/P (MAP) Pulse Ox O2 Delivery O2 Flow Rate FiO2 02/04/25 18:30 80 02/04/25 08:00 28 95 Room Air 02/04/25 02:00 97.0 95/46 (62) 02/03/25 10:30 2.0 Result Diagram: 02/04/25 0643 02/04/25 0643 General-patient not in any acute distress, confused , chronically ill-appearing HEENT-atraumatic normocephalic, neck supple without elevated JVD, . No lymphadenopathy bilaterally. Eyes-no icterus or pallor seen in eyes Chest-clear to auscultation bilaterally, breathing nonlabored no tachypnea, no wheezing, no crepitation, no crackles. Heart-S1-S2 normal, regular heart rate no murmur Abdomen bowel sounds positive on auscultation, soft nondistended nontender no guarding, no rigidity Skin no active skin rash Neurology-grossly intact, nonfocal , confused partially cooperated during physical exam Extremity- no pedal edema able to move all 4 extremities, Psychiatry - patient is not agitated , partially cooperated during physical examination Coagulation Studies Laboratory Tests Test 02/01/25 22:46 02/03/25 20:54 Activated Partial Thromboplast Time 39 SECONDS (22-32) H Prothrombin Time 18.6 SECONDS (9.0-12.0) H INR International Normalized Ratio 1.9 INR Coagulation Comments Problem\\Assessment\\Plan 1. Severe Anemia (Hgb 8.7 post-transfusion, negative stool occult) Varices versus duodenal ulcers Patient has severe anemia with Hgb 6.8 prior to transfusion Macrocytosis (MCV 101) nutritional deficiency versus chronic alcohol use Stool occult blood is negative, Received 1 unit PRBC transfusion at prior facility Plan: Continue to monitor hemoglobin and transfuse PRBC if Hgb <7 H&H Q 6 H will follow iron, B12, folate, reticulocyte count Dr Wills aware regarding this patient's admission and willing to evaluate the patient possible EGD Continue IV PPI Protonix 40 mg b.i.d. Patient received loading dose of Protonix in the ED One more unit of packed RBC ordered 2. Decompensated Cirrhosis / Portal Hypertension Severe Hyperbilirubinemia Advanced cirrhosis with ascites, varices, jaundice, low albumin, elevated INR MELD-Na: 35 - very high 90-day mortality Child-Medrano: 12 - Class C, severe disease Plan: Ordered direct bilirubin levels, please follow up Patient will benefit from transplant evaluation will Monitor liver function tests, bilirubin, INR, albumin daily Avoid nephrotoxic and hepatotoxic medications Sodium restriction (2 g/day) Propranolol prophylaxis deferred now due to borderline blood pressure. 3. Ascites Risk of SBP- spontaneous bacterial peritonitis Moderate ascites noted on imaging but as per visual education director team "Trace ascites ; too small for paracentesis" Plan: Diagnostic and therapeutic paracentesis for cell count, albumin, protein and cultures ordered Empiric IV ceftriaxone 1 g IV daily ordered Diuretics (furosemide, spironolactone) deferred due to hypotension and XIOMARA Monitor weight, strict I/O, and renal function daily Blood cultures so far negative 4. Acute Kidney Injury / CKD (Creatinine 3.60) Hepatorenal syndrome (HRS) is not diagnosed at this time Currently not hepatorenal syndrome as renal function has not been challenged with fluids or albumin yet Could be from hypotension or sepsis Plan: Patient received 1.5 L IV bolus in the ED, continuing fluid resuscitation at 50 cc/hour normal saline and soda bicarb will Monitor electrolytes and renal function closely , Urine lytes ordered Renal ultrasound done which showed moderate bursitis, normal sonographic appearance of the kidneys no hydronephrosis Avoid nephrotoxic medications Dr. Nixon consulted for this patient's case and he recommended to start albumin which is ordered. Further management for acute kidney injury/acute on chronic CKD per Nephrology specialist Nephrology specialist Dr. Nixon following the patient and recommended to order another albumin dose for today and he is okay to follow patient for nephrology issues in outpatient setting. 5. Coagulopathy (INR 1.85, Platelets 95) Patient does not require any correction as there is no active bleeding now will Monitor INR and platelets daily 7. Mild Hepatic Encephalopathy- resolved Intermittent confusion likely triggered by infection or metabolic derangements Plan: Initiated lactulose, 23 soft stools/day will Consider rifaximin if encephalopathy persists 8. Hyperkalemia (K 5.5)-resolved Mild hyperkalemia likely secondary to XIOMARA Plan: Repeat potassium ordered No ECG changes present currently Avoiding spironolactone in view of hyperkalemia Ordered 1 time dose of Lokelma 9. Constipation Chronic constipation worsened by ascites and immobility Can exacerbate hepatic encephalopathy will Continue lactulose Encouraged ambulation 10. Alcohol use disorder Severe malnutrition Malnutrition evident (albumin 1.9 g/dL) History of alcohol use, currently abstinent Plan: Nutrition consult for high-protein and low-sodium diet Supplement thiamine, folate, multivitamins career services director and substance abuse navigator consulted 11. Urine culture showing Gram-negative rods currently on ceftriaxone. patient was seen after she came back from colonoscopy. She was quite lethargic and vaguely responded to verbal commands partially cooperated during physical exam. Patient's boyfriend came in evening and he mentioned that she is dealing with this condition since couple of years. Everything started with gallbladder problem and she went to [place] but looks like abdominal surgery was not done for some reasons. All labs, diagnostic workup and discharge plan discussed with patients boyfriend in detail today. All questions and queries answered to the best of my professional medical knowledge. EGD showed grade 1 esophageal varices, portal hypertensive gastropathy which was biopsied, normal duodenal bulb and 2nd portion of duodenum. It was recommended to resume regular diet, continue present medication. Emergency contact information provided by GI specialist. After discussing current updated medical issues his boyfriend mentioned that everything you said is right but things that I have to add and then he left back inside the room. He mentioned patient is a fighter and he wants to fight for patient's life . Patient's current condition is guarded we will continue to follow patient in AM. Date of Service: Feb 04, 2025 Billing Provider: JHONATAN MATTHEW MD Common Visit Codes: [id number] INP/OBS CARE(HIGH) JHONATAN MATTHEW MD Feb 04, 2025 19:47
[2025-02-04] MEDS: lactulose 20gm/30ml cup PO SCH (20:17)
[2025-02-04] MEDS: rifaximin 550mg tablet PO SCH (20:17)
[2025-02-05 02:00] VITALS: BP 124/78; PULSE 71; RESP 12; TEMP 97.1; O2SAT 96
[2025-02-05 06:00] VITALS: BP 121/47; PULSE 73; RESP 12; TEMP 97.6; O2SAT 97
[2025-02-05 07:18] LABS: MEAN PLATELET VOLUME 8.6 FL (7.4-10.4); RED CELL DISTRIBUTION WIDTH 18.4 % (11.5-14.5)
[2025-02-05 07:48] LABS: CREATININE 2.88 MG/DL (0.40-0.90); TOTAL CARBON DIOXIDE 20.7 MMOL/L (24-32); eCRCL 16 ML/MIN; eGFR 17 ML/MIN
[2025-02-05 07:50] LABS: PLATELET ESTIMATE DECREASED
[2025-02-05 08:00] VITALS: RESP 16; O2SAT 96
[2025-02-05 11:00] VITALS: BP 127/64; PULSE 82; RESP 12; TEMP 97.4; O2SAT 98
[2025-02-05] MEDS ORDERED: FURO20TA4 PO (11:47)
[2025-02-05] MEDS ORDERED: RIFA550T PO (11:47)
[2025-02-05] MEDS ORDERED: CIPR-259 PO (11:50)
[2025-02-05 15:00] VITALS: BP 150/66; PULSE 84; RESP 24; TEMP 97.9; O2SAT 97
--- NOTE | 2025-02-05 20:19 | DISCHARGE SUMMARY ---
Discharge Summary Providers to ~ Discharge Summary Admission Diagnosis: SEPSIS . GI BLEED Hospital Course DATE OF ADMISSION: 02/02/25 DATE OF DISCHARGE:02/05/25 CBC testing done on February 05, 2025 WBC 6.8, hemoglobin 9.7 hematocrit 27.6 platelet count 71. Sed rate 7. Urine culture showed signs of E coli. Blood culture showed no growth after three days. ULTRASOUND KIDNEY NON VASCIMPRESSION: 1. Normal sonographic appearance of the kidneys. No hydronephrosis. 2. Moderate ascites ECHOCARDIOGRAMConclusion Overall LVEF is 70-75%. Normal LV size and function. Mild concentric hypertrophy. RV is moderately dilated with normal systolic function. RVSP is estimated at 42 mmHg. Trileaflet AV appears mildly sclerotic without stenosis or insufficiency. Mild MV annular calcification without stenosis. Trace regurgitation. TV appears structurally normal with trace regurgitation. Hyperdynamic flow through the IVC into the RA, Normal PV without stenosis, physiologic insufficiency. Trace anterior pericardial effusion and epicardial fat pad without hemodynamic compromise. CHEST,SINGLE IMPRESSION: 1. No acute disease. Discharge Diagnosis\\Comment: Severe Anemia (Hgb 8.7 post-transfusion, negative stool occult) Varices versus duodenal ulcers Decompensated Cirrhosis / Portal Hypertension Severe Hyperbilirubinemia mild Ascites Acute Kidney Injury / CKD Coagulopathy (INR 1.85, Platelets 95) Mild Hepatic Encephalopathy- resolved Hyperkalemia (K 5.5)-resolved Urine culture showing Gram-negative rods Alcohol use disorder Severe malnutrition Constipation Operations\\Procedures: None Consultants: Dr Nixon , Dr Wills Complications: None Condition on DC: Stable New Medications: Ciprofloxacin HCl (Cipro) 500 Mg Tablet 1 TAB PO Q12H for 5 Days, #10 TAB Furosemide (Furosemide) 20 Mg Tablet 1 TAB PO DAILY for 30 Days, #30 TAB 0 Refills Rifaximin (Xifaxan) 550 Mg Tablet 550 MG PO BID for 10 Days, #20 TAB Continued Medications: Lactulose (Lactulose) 20 Gram/30 Ml Solution 30 ML PO DAILY for constipation for 30 Days, #900 ML 0 Refills Omeprazole (Prilosec) 40 Mg Capsule 1 CAP PO BID Simethicone (Simethicone) 80 Mg Tab.chew Sucralfate (Sucralfate) 1 Gram Tablet 1 TAB PO QID Discontinued Medications: Spironolactone (Spironolactone) 50 Mg Tablet 1 TAB PO BID Discharge Summary: Per admitting provider's history and physical note" A 59-year-old female with a history of alcoholic cirrhosis, chronic kidney disease, duodenal ulcer disease, ascites, varices, jaundice was transferred from [facility] for evaluation and management of severe anemia. She was evaluated by her PCP earlier for progressive weakness, with hemoglobin of 6.8 and was prompted to the ED at prior facility. She denies melena, hematemesis, bright red blood per rectum, hematuria, dysuria, nausea, vomiting, diarrhea, fevers, or chills. She reports chronic lower pelvic cramping. She has a history of heavy alcohol use (vodka and wine daily for 5 years), quit 1 year ago and has had intermittent paracentesis over the past five years. She underwent an EGD, but has never had a colonoscopy. At our facility, she was alert and oriented 4, but intermittently derailed conversations and appeared slightly confused, indicative of mild hepatic encephalopathy" During hospitalization patient was treated for .1. Severe Anemia (Hgb 8.7 post-transfusion, negative stool occult) Varices versus duodenal ulcers Patient has severe anemia with Hgb 6.8 prior to transfusion Macrocytosis (MCV 101) nutritional deficiency versus chronic alcohol use Stool occult blood is negative, Received 1 unit PRBC transfusion at prior facility Plan: Continue to monitor hemoglobin and transfuse PRBC if Hgb <7 H&H Q 6 H will follow iron, B12, folate, reticulocyte count Dr Wills aware regarding this patient's admission and willing to evaluate the patient possible EGD Continue IV PPI Protonix 40 mg b.i.d. Patient received loading dose of Protonix in the ED One more unit of packed RBC ordered EGD done during hospitalization showed signs of portal hypertension and esophageal varices but no active bleeding 2. Decompensated Cirrhosis / Portal Hypertension Severe Hyperbilirubinemia Advanced cirrhosis with ascites, varices, jaundice, low albumin, elevated INR MELD-Na: 35 - very high 90-day mortality Child-Medrano: 12 - Class C, severe disease Plan: Ordered direct bilirubin levels, please follow up Patient will benefit from transplant evaluation will Monitor liver function tests, bilirubin, INR, albumin daily Avoid nephrotoxic and hepatotoxic medications Sodium restriction (2 g/day) Propranolol prophylaxis deferred now due to borderline blood pressure. 3. Ascites Risk of SBP- spontaneous bacterial peritonitis Moderate ascites noted on imaging but as per toilet products molder team "Trace ascites ; too small for paracentesis" Plan: Diagnostic and therapeutic paracentesis for cell count, albumin, protein and cultures ordered Empiric IV ceftriaxone 1 g IV daily ordered Diuretics (furosemide, spironolactone) deferred due to hypotension and XIOMARA Monitor weight, strict I/O, and renal function daily Blood cultures so far negative 4. Acute Kidney Injury / CKD (Creatinine 3.60) Hepatorenal syndrome (HRS) is not diagnosed at this time Currently not hepatorenal syndrome as renal function has not been challenged with fluids or albumin yet Could be from hypotension or sepsis Plan: Patient received 1.5 L IV bolus in the ED, continuing fluid resuscitation at 50 cc/hour normal saline and soda bicarb will Monitor electrolytes and renal function closely , Urine lytes ordered Renal ultrasound done which showed moderate bursitis, normal sonographic appearance of the kidneys no hydronephrosis Avoid nephrotoxic medications Dr. Nixon consulted for this patient's case and he recommended to start albumin which is ordered. Further management for acute kidney injury/acute on chronic CKD per Nephrology specialist Nephrology specialist Dr. Nixon following the patient and recommended to order another albumin dose for today and he is okay to follow patient for nephrology issues in outpatient setting. 5. Coagulopathy (INR 1.85, Platelets 95) Patient does not require any correction as there is no active bleeding now will Monitor INR and platelets daily 7. Mild Hepatic Encephalopathy- resolved Intermittent confusion likely triggered by infection or metabolic derangements Plan: Initiated lactulose, 23 soft stools/day will Consider rifaximin if encephalopathy persists 8. Hyperkalemia (K 5.5)-resolved Mild hyperkalemia likely secondary to XIOMARA Plan: Repeat potassium ordered No ECG changes present currently Avoiding spironolactone in view of hyperkalemia Ordered 1 time dose of Lokelma 9. Constipation Chronic constipation worsened by ascites and immobility Can exacerbate hepatic encephalopathy will Continue lactulose Encouraged ambulation 10. Alcohol use disorder Severe malnutrition Malnutrition evident (albumin 1.9 g/dL) History of alcohol use, currently abstinent Plan: Nutrition consult for high-protein and low-sodium diet Supplement thiamine, folate, multivitamins marketing services coordinator and substance abuse navigator consulted 11. Urine culture showing Gram-negative rods currently on ceftriaxone. 02/03-patient was seen after she came back from colonoscopy. She was quite lethargic and vaguely responded to verbal commands partially cooperated during physical exam. Patient's boyfriend came in evening and he mentioned that she is dealing with this condition since couple of years. Everything started with gallbladder problem and she went to [place] but looks like abdominal surgery was not done for some reasons. All labs, diagnostic workup and discharge plan discussed with patients boyfriend in detail today. All questions and queries answered to the best of my professional medical knowledge. EGD showed grade 1 esophageal varices, portal hypertensive gastropathy which was biopsied, normal duodenal bulb and 2nd portion of duodenum. It was recommended to resume regular diet, continue present medication. Emergency contact information provided by GI specialist. After discussing current updated medical issues his boyfriend mentioned that everything you said is right but things that I have to add and then he left back inside the room. He mentioned patient is a fighter and he wants to fight for patient's life . 02/04-Patient was in presence of outpatient case manager Janine patient's boyfriend and nursing staff today. I tried to explain patient's current updated medical condition to both patient and her boyfriend. Patient is mildly confused but cooperated during physical exam. I am not sure how much boyfriend is getting with the conversation but he feels that he wants to take her to [place] for further management.. Nephrology specialist Dr. Nixon following the patient and recommended to order another albumin dose for today and he is okay to follow patient for nephrology issues in outpatient setting. she has been afebrile and getting discharged home with her boyfriend in stable condition today. As per charge nurse Jodi he did not allowed anybody to move the patient in arranged transportation by himself. Patient is seen and examined on the day of discharge. Patient was cleared by Physical therapy team for home discharge. manager php Radha involved in patient's discharge plan. General-patient not in any acute distress, confused , chronically ill-appearing HEENT-atraumatic normocephalic, neck supple without elevated JVD, . No lymphadenopathy bilaterally. Eyes-no icterus or pallor seen in eyes Chest-clear to auscultation bilaterally, breathing nonlabored no tachypnea, no wheezing, no crepitation, no crackles. Heart-S1-S2 normal, regular heart rate no murmur Abdomen bowel sounds positive on auscultation, soft nondistended nontender no guarding, no rigidity Skin no active skin rash Neurology-grossly intact, nonfocal , confused partially cooperated during physical exam Extremity- no pedal edema able to move all 4 extremities, Psychiatry - patient is not agitated , partially cooperated during physical examination *Problems/Diagnosis: (1) Cirrhosis (2) Encephalopathy (3) Hyperkalemia (4) Coagulopathy (5) Malnutrition (6) Alcohol use disorder in remission (7) Duodenal ulcer (8) Constipation (9) Anemia Status: Acute (10) Acute kidney failure Status: Acute Total Time Spent on D/C: > 30 Minutes Date of Service: Feb 05, 2025 Billing Provider: JHONATAN MATTHEW MD Common Visit Codes: 93146-JQX/[id number] DAY >30min JHONATAN MATTHEW MD Feb 05, 2025 20:12
== END 2025-02-05 17:42 | disposition home or self-care (01) | DRG 720 ==
LOC: ER 22:06 → ED HOLD 02-02 03:08 → PCU 3S 02-02 07:12
PROVIDERS: ADMIT Internal Medicine Critical Care Medicine; ATTEND Internal Medicine
PROC: 30233N1 Transfusion of Nonautologous Red Blood Cells into Peripheral Vein, Percutaneous Approach (ICD-10-PCS; 2025-02-03)
PROC: 0DB68ZX Excision of Stomach, Via Natural or Artificial Opening Endoscopic, Diagnostic (ICD-10-PCS; principal; 2025-02-03 09:21)
DX: A41.9 Sepsis, unspecified organism (principal); E43 Unspecified severe protein-calorie malnutrition; D68.9 Coagulation defect, unspecified; K70.31 Alcoholic cirrhosis of liver with ascites; K76.82 Hepatic encephalopathy; K70.30 Alcoholic cirrhosis of liver without ascites; N17.9 Acute kidney failure, unspecified; N39.0 Urinary tract infection, site not specified; D64.9 Anemia, unspecified; I85.10 Secondary esophageal varices without bleeding; N18.9 Chronic kidney disease, unspecified; F10.11 Alcohol abuse, in remission; E87.5 Hyperkalemia; K59.09 Other constipation; Y90.0 Blood alcohol level of less than 20 mg/100 ml; R16.1 Splenomegaly, not elsewhere classified; K80.50 Calculus of bile duct without cholangitis or cholecystitis without obstruction; K57.30 Diverticulosis of large intestine without perforation or abscess without bleeding; K76.6 Portal hypertension; K31.89 Other diseases of stomach and duodenum; Z87.11 Personal history of peptic ulcer disease; Z68.24 Body mass index [BMI] 24.0-24.9, adult
CPT/HCPCS: 36415; 36430; 43239; 71045; 76705; 76770; 80053; 80061; 80305; 80320; 81001; 82140; 82248; 82272; 82570; 82607; 82728; 83036; 83540; 83550; 83605; 83735; 83930; 83935; 84145; 84300; 85008; 85025; 85027; 85610; 85651; 85730; 86885; 86900; 86901; 86920; 87040; 87077; 87081; 87088; 87186; 87207; 93005; 93306; 99152; 99291; A4620; C1729; G0378; J0696; J2250; J2470; J3010; J3411; J3490; J7030; J7070; J7120; P9016; P9045; P9047